=== PATIENT | male | born 1940 | race Caucasian/White ===

== ENCOUNTER 2017-03-16 19:19 | Inpatient (IN) | payer MEDICARE ==
[~2017-03-16] VITALS: Ht 170.2 cm; Wt 90.8 kg
[~2017-03-16 19:19] MED LIST: ALBU1.25 NEB; ALBU18HF INH; ALBU8.5H5 INH; CLON0.5T20 PO; FLUO20CA8 PO; FLUT1BLS INH; GLIP5TAB10 PO; GUAI200T3 PO; IPRA3AMP NPPB; LEVO750T26 PO; LISI1TAB3 PO; OXYC-307 PO; PRED5TAB PO; SPIR25TA PO
[2017-03-16] MEDS ORDERED: ALBUTEROL/IPRATROPIUM 2.5MG/0.5MG, 3 ML ONE (19:41)
[2017-03-16] MEDS ORDERED: SODIUM CHLORIDE 0.9% 1,000ML IVBOLUS ONE (20:00)
[2017-03-16] MEDS ORDERED: ALBUTEROL/IPRATROPIUM 2.5MG/0.5MG, 3 ML NPPB ONE (20:00)
[2017-03-16] MEDS ORDERED: SODIUM CHLORIDE FLUSH 10ML SYR IVF ONE ×2 (20:00)
[2017-03-16 20:02] LABS: BASOPHILS # (AUTO) 0.04 x10^3/uL (0-0.1); BASOPHILS % (AUTO) 0 % (0-1); EOSINOPHILS # (AUTO) 0.44 x10^3/uL (0-0.4); EOSINOPHILS % (AUTO) 5 % (1-7); LYMPHOCYTES # (AUTO) 2.55 x10^3/uL (1-3.4); LYMPHOCYTES % (AUTO) 29 % (22-44); MD NO; MEAN CORPUSCULAR HGB CONC 33.5 g/dL (33.2-36.2); MEAN CORPUSCULAR VOLUME 98.4 fL (81-97); MONOCYTES # (AUTO) 0.81 x10^3/uL (0.2-0.8); MONOCYTES % (AUTO) 9 % (2-9); NEUTROPHILS # (AUTO) 4.95 x10^3/uL (1.8-6.8); NEUTROPHILS % (AUTO) 56 % (42-75); PLATELET COUNT 240 x10^3/uL (130-400); RED BLOOD COUNT 4.93 x10^6/uL (4.38-5.82); RED CELL DISTRIBUTION WIDTH 13.1 % (9.4-14.8)
[2017-03-16] MEDS ORDERED: METF500T4 PO (20:19)
[2017-03-16] MEDS ORDERED: RIVA20TA PO (20:19)
[2017-03-16] MEDS ORDERED: SERT25TA PO (20:19)
[2017-03-16] MEDS ORDERED: ATOR20TA PO (20:19)
[2017-03-16] MEDS ORDERED: ESCI20TA PO (20:19)
[2017-03-16] MEDS ORDERED: CETI10CA PO (20:19)
[2017-03-16 21:06] LABS: ALANINE AMINOTRANSFERASE 37 U/L (12-78); ALBUMIN 3.7 g/dL (3.4-5.0); ANION GAP 7 mmol/L (5-15); CALCIUM 9.2 mg/dL (8.5-10.1); CHLORIDE 105 mmol/L (98-107)
[2017-03-16 21:09] LABS: ALKALINE PHOSPHATASE 49 U/L (45-117); BILIRUBIN,TOTAL 0.4 mg/dL (0.2-1.0); TOTAL PROTEIN 7.1 g/dL (6.4-8.2)
[2017-03-16 21:17] LABS: TROPONIN I 0.055 ng/mL (0.000-0.045)
[2017-03-16] MEDS ORDERED: ASPIRIN 325 MG TABLET ONE (21:51)
[2017-03-16] MEDS ORDERED: HYDROcodone/APAP 5/325 TABLET ONE (21:54)
[2017-03-16] MEDS ORDERED: ASPIRIN 325 MG TABLET PO ONE (22:00)
[2017-03-16] MEDS ORDERED: HYDROcodone/APAP 5/325 TABLET PO ONE (22:00)
[2017-03-16] MEDS ORDERED: DOCUSATE 100 MG CAPSULE PO PRN (23:30)
[2017-03-16] MEDS ORDERED: ENALAPRILAT 1.25 MG/ML, 2ML IVPush PRN (23:30)
[2017-03-16] MEDS ORDERED: AZITHROMYCIN 500 MG TABLET PO SCH (23:30)
[2017-03-16] MEDS ORDERED: ONDANSETRON ODT 4 MG PO PRN (23:30)
[2017-03-16] MEDS ORDERED: NITROGLYCERIN 0.4 MG BOTTLE (25 TABS) SL PRN (23:30)
[2017-03-16] MEDS ORDERED: ALBUTEROL/IPRATROPIUM 2.5MG/0.5MG, 3 ML IPPB PRN (23:30)
[2017-03-16] MEDS ORDERED: ACETAMINOPHEN 325 MG TABLET PO PRN (23:30)
[2017-03-16] MEDS ORDERED: LEVOFLOXACIN/PMX 750MG/150ML 150 ML ONE (23:49)
[2017-03-16] MEDS ORDERED: ENOXAPARIN 40 MG/0.4 ML ONE (23:49)
[2017-03-16] MEDS: ENOXAPARIN 40 MG/0.4 ML SQ SCH (23:55)
[2017-03-17] MEDS ORDERED: ALBUTEROL/IPRATROPIUM 2.5MG/0.5MG, 3 ML ONE ×4 (00:11→10:39)
[2017-03-17] MEDS: LEVOFLOXACIN/PMX 750MG/150ML 150 ML IV SCH (01:09)
[2017-03-17 01:28] LABS: RAPID INFLUENZA A Negative (Negative); RAPID INFLUENZA B Negative (Negative)
[2017-03-17] MEDS ORDERED: ALBUTEROL/IPRATROPIUM 2.5MG/0.5MG, 3 ML NPPB PRN (01:30)
[2017-03-17 03:39] LABS: BASOPHILS # (AUTO) 0.02 x10^3/uL (0-0.1); BASOPHILS % (AUTO) 0 % (0-1); EOSINOPHILS % (AUTO) 0 % (1-7); LYMPHOCYTES # (AUTO) 0.55 x10^3/uL (1-3.4); LYMPHOCYTES % (AUTO) 11 % (22-44); MD NO; MEAN CORPUSCULAR HEMOGLOBIN 33.5 pg (27.5-34.5); MEAN CORPUSCULAR HGB CONC 34.2 g/dL (33.2-36.2); MEAN PLATELET VOLUME 7.9 fL (7.4-10.4); MONOCYTES # (AUTO) 0.03 x10^3/uL (0.2-0.8); MONOCYTES % (AUTO) 1 % (2-9); NEUTROPHILS # (AUTO) 4.68 x10^3/uL (1.8-6.8); NEUTROPHILS % (AUTO) 89 % (42-75); PLATELET COUNT 200 x10^3/uL (130-400); RED BLOOD COUNT 4.68 x10^6/uL (4.38-5.82); RED CELL DISTRIBUTION WIDTH 12.8 % (9.4-14.8)
[2017-03-17 03:51] LABS: TROPONIN I 0.053 ng/mL (0.000-0.045)
[2017-03-17 08:50] LABS: ANION GAP 6 mmol/L (5-15); CALCIUM 9.5 mg/dL (8.5-10.1); CHLORIDE 107 mmol/L (98-107); CREATININE 0.85 mg/dL (0.7-1.3)
[2017-03-17 08:53] LABS: TROPONIN I 0.054 ng/mL (0.000-0.045)
[2017-03-17] MEDS ORDERED: ALBUTEROL/IPRATROPIUM 2.5MG/0.5MG, 3 ML NPPB SCH (10:00)
[2017-03-17] MEDS: ALBUTEROL/IPRATROPIUM 2.5MG/0.5MG, 3 ML NPPB SCH ×4 (10:42→22:31)
[2017-03-17] MEDS ORDERED: SERTRALINE HCL 25 MG PO SCH (12:00)
[2017-03-17] MEDS ORDERED: TEMPLATE NON-FORMULARY MED. (Clonazepam** 0.5 MG) PO SCH (12:00)
[2017-03-17 12:59] LABS: HEMOGLOBIN A1C 5.7 % (4.2-6.3)
[2017-03-17 13:45] VITALS: BP 124/71
[2017-03-17] MEDS ORDERED: [UNRECOGNIZED DRUG - REMARK] MC SCH (14:00)
[2017-03-17] MEDS: CITALOPRAM 20 MG TABLET PO SCH (14:05)
[2017-03-17] MEDS: RIVAROXABAN 20 MG TABLET PO SCH (15:27)
[2017-03-17 19:12] VITALS: BP 132/63
[2017-03-17] MEDS: ATORVASTATIN 20 MG TABLET PO SCH (22:21)
[2017-03-17] MEDS: ENOXAPARIN 40 MG/0.4 ML SQ SCH (23:30)
[2017-03-18 01:20] VITALS: BP 131/78
[2017-03-18] MEDS: LEVOFLOXACIN/PMX 750MG/150ML 150 ML IV SCH (01:31)
[2017-03-18] MEDS: TEMAZEPAM 15 MG CAPSULE PO PRN ×2 (01:33→22:35)
[2017-03-18] MEDS: ALBUTEROL/IPRATROPIUM 2.5MG/0.5MG, 3 ML NPPB SCH ×6 (03:05→23:00)
[2017-03-18 06:17] VITALS: BP 153/88
[2017-03-18] MEDS ORDERED: ALBUTEROL/IPRATROPIUM 2.5MG/0.5MG, 3 ML NPPB PRN (07:00)
[2017-03-18 08:25] VITALS: BP 156/86
[2017-03-18] MEDS: RIVAROXABAN 20 MG TABLET PO SCH (08:37)
[2017-03-18] MEDS: SERTRALINE 50MG TABLET PO SCH (08:37)
[2017-03-18] MEDS: CITALOPRAM 20 MG TABLET PO SCH (08:39)
[2017-03-18] MEDS ORDERED: REGADENOSON 0.4 MG/5 ML SYRINGE ONE (09:15)
[2017-03-18 12:14] LABS: ANION GAP 6 mmol/L (5-15); CALCIUM 9.4 mg/dL (8.5-10.1); CHLORIDE 104 mmol/L (98-107); CREATININE 0.84 mg/dL (0.7-1.3)
[2017-03-18] MEDS ORDERED: NICOTINE 14MG/24 HR PATCH.TD24 TD ONE (12:30)
[2017-03-18] MEDS: GUAIFENESIN ER 600 MG TABLET PO SCH ×3 (12:45→22:35)
[2017-03-18 14:38] VITALS: BP 114/68
[2017-03-18] MEDS ORDERED: GUAIFENESIN ER 600 MG TABLET PO SCH (16:00)
[2017-03-18 21:04] VITALS: BP 125/69
[2017-03-18] MEDS: ATORVASTATIN 20 MG TABLET PO SCH (22:35)
[2017-03-19] MEDS: LEVOFLOXACIN/PMX 750MG/150ML 150 ML IV SCH (02:30)
[2017-03-19 02:42] VITALS: BP 119/64
[2017-03-19] MEDS: ALBUTEROL/IPRATROPIUM 2.5MG/0.5MG, 3 ML NPPB SCH ×6 (02:48→23:21)
[2017-03-19 09:05] VITALS: BP 107/59
[2017-03-19] MEDS: RIVAROXABAN 20 MG TABLET PO SCH (09:08)
[2017-03-19] MEDS: SERTRALINE 50MG TABLET PO SCH (09:08)
[2017-03-19] MEDS: GUAIFENESIN ER 600 MG TABLET PO SCH ×3 (09:09→21:10)
[2017-03-19] MEDS: CITALOPRAM 20 MG TABLET PO SCH (09:09)
[2017-03-19 12:59] VITALS: BP 133/79
[2017-03-19] MEDS ORDERED: NICOTINE 14MG/24 HR PATCH.TD24 TD SCH (13:00)
[2017-03-19 15:15] VITALS: BP 135/75
[2017-03-19 21:09] VITALS: BP 101/63
[2017-03-19] MEDS: ATORVASTATIN 20 MG TABLET PO SCH (21:10)
[2017-03-20] MEDS: LEVOFLOXACIN/PMX 750MG/150ML 150 ML IV SCH (01:52)
[2017-03-20 01:55] VITALS: BP 118/73
[2017-03-20] MEDS: ALBUTEROL/IPRATROPIUM 2.5MG/0.5MG, 3 ML NPPB SCH ×2 (03:02→06:35)
[2017-03-20] MEDS ORDERED: IPRA3AMP NPPB (07:36)
[2017-03-20] MEDS ORDERED: TIOT18CA INH (07:36)
[2017-03-20] MEDS ORDERED: PRED10TA PO (07:36)
[2017-03-20] MEDS ORDERED: NICO-486 TD (07:36)
[2017-03-20] MEDS ORDERED: FLUT1DIS IH (07:36)
[2017-03-20] MEDS ORDERED: GUAI600T31 PO (07:36)
[2017-03-20] MEDS ORDERED: LEVO500T47 PO (07:36)
[2017-03-20] MEDS ORDERED: SIMV20TA PO (07:37)
[2017-03-20 07:38] VITALS: BP 119/70
[2017-03-20] MEDS: RIVAROXABAN 20 MG TABLET PO SCH (08:24)
[2017-03-20] MEDS: GUAIFENESIN ER 600 MG TABLET PO SCH (08:24)
[2017-03-20] MEDS: SERTRALINE 50MG TABLET PO SCH (08:24)
[2017-03-20] MEDS: CITALOPRAM 20 MG TABLET PO SCH (08:24)
== END 2017-03-20 09:31 | disposition home or self-care (01) | DRG 189 ==
LOC: ED 21:30 → EDIP 23:09 → 5SO 03-17 13:39
PROVIDERS: ADMIT Hospitalist; ATTEND Internal Medicine
DX: J96.21 Acute and chronic respiratory failure with hypoxia (principal); J18.9 Pneumonia, unspecified organism; D68.69 Other thrombophilia; I11.0 Hypertensive heart disease with heart failure; I50.32 Chronic diastolic (congestive) heart failure; F33.0 Major depressive disorder, recurrent, mild; E11.9 Type 2 diabetes mellitus without complications; J44.1 Chronic obstructive pulmonary disease with (acute) exacerbation; J44.0 Chronic obstructive pulmonary disease with (acute) lower respiratory infection; E78.5 Hyperlipidemia, unspecified; F17.200 Nicotine dependence, unspecified, uncomplicated; I25.10 Atherosclerotic heart disease of native coronary artery without angina pectoris; I25.2 Old myocardial infarction; J20.9 Acute bronchitis, unspecified; Z86.718 Personal history of other venous thrombosis and embolism; Z88.8 Allergy status to other drugs, medicaments and biological substances
CPT/HCPCS: 36415; 71045; 78452; 80048; 80053; 82962; 83036; 83880; 84484; 85025; 87070; 87205; 87400; 93005; 93017; 94640; 99285; J1650; J1956; J2785; J7620; A9502; C9898; J7030; J7512

== ENCOUNTER 2017-11-17 16:10 | Emergency (ER) | payer MEDICARE ==
[~2017-11-17] VITALS: Ht 170.2 cm; Wt 90.0 kg
[~2017-11-17 16:10] MED LIST changes: +ATOR20TA PO; +CETI10CA PO; +ESCI20TA PO; +FLUT1DIS IH; +GUAI600T31 PO; -IPRA3AMP NPPB; +IPRA3AMP30 NPPB; +LEVO500T47 PO; +METF500T17 PO; +NICO-486 TD; +PRED10TA PO; +RIVA20TA PO; +SERT25TA PO; +SIMV20TA PO; +TIOT18CA INH
[2017-11-17] MEDS ORDERED: SODIUM CHLORIDE FLUSH 10ML SYR IVF ONE (16:30)
[2017-11-17] MEDS ORDERED: ONDANSETRON ODT 4 MG PO ONE (16:30)
[2017-11-17] MEDS ORDERED: MORPHINE SULFATE 4 MG/ML, 1ML IVPush PRN (16:30)
[2017-11-17] MEDS ORDERED: DIAZEPAM 5 MG/ML, 2ML IV ONE (17:00)
[2017-11-17] MEDS ORDERED: ONDANSETRON ODT 4 MG ONE (17:38)
[2017-11-17] MEDS ORDERED: MORPHINE SULFATE 4 MG/ML, 1ML ONE (17:38)
[2017-11-17 18:11] LABS: MICROSCOPIC NOT IND
[2017-11-17 18:20] LABS: CULTURE INDICATED? NO
[2017-11-17 18:30] VITALS: BP 134/72
== END 2017-11-17 18:44 | disposition home or self-care (01) ==
LOC: ED 18:22
DX: S39.012A Strain of muscle, fascia and tendon of lower back, initial encounter (principal); M51.36 Other intervertebral disc degeneration, lumbar region; E11.9 Type 2 diabetes mellitus without complications; I25.10 Atherosclerotic heart disease of native coronary artery without angina pectoris; I25.2 Old myocardial infarction; I50.9 Heart failure, unspecified; J44.9 Chronic obstructive pulmonary disease, unspecified; X50.1XXA Overexertion from prolonged static or awkward postures, initial encounter; Y93.89 Activity, other specified; Y92.89 Other specified places as the place of occurrence of the external cause; Y99.8 Other external cause status
CPT/HCPCS: 72110; 81003; 96374; 96375; 99285; J3360; Q0162

== ENCOUNTER 2018-02-01 22:17 | Emergency (ER) | payer MEDICARE ==
[~2018-02-01] VITALS: Ht 170.2 cm; Wt 98.0 kg
[2018-02-01 22:19] VITALS: BP 167/90
[2018-02-01] MEDS ORDERED: HYDROcodone/APAP 5/325 TABLET ONE (23:15)
[2018-02-01] MEDS ORDERED: HYDROcodone/APAP 5/325 TABLET PO ONE (23:30)
== END 2018-02-01 23:32 | disposition home or self-care (01) ==
LOC: ED 22:50
DX: S83.92XA Sprain of unspecified site of left knee, initial encounter (principal); E11.9 Type 2 diabetes mellitus without complications; J44.9 Chronic obstructive pulmonary disease, unspecified; I25.2 Old myocardial infarction; I25.10 Atherosclerotic heart disease of native coronary artery without angina pectoris; J45.909 Unspecified asthma, uncomplicated; I50.9 Heart failure, unspecified; X50.1XXA Overexertion from prolonged static or awkward postures, initial encounter; Y93.89 Activity, other specified; Y92.89 Other specified places as the place of occurrence of the external cause; Y99.8 Other external cause status
CPT/HCPCS: 29505; 82962; 99283